=== PATIENT | male | born 1950 | race Caucasian/White ===

== ENCOUNTER 2017-09-27 22:00 | Emergency (ER) | payer OTHER, MEDICARE ==
[2017-09-27] MEDS ORDERED: IPRATROPIUM/ALBUTEROL 3 ML DEYVIAL IH ONE (22:09)
[2017-09-27] MEDS ORDERED: predniSONE 20 MG TAB PO ONE (22:22)
[2017-09-27] MEDS ORDERED: ALBUTEROL 3 ML DEYVIAL IH ONE (22:31)
--- NOTE | 2017-09-27 22:35 | EDPHY ---
H & P Stated Complaint: astma excarebation- SOB Time Seen by Provider: 09/27/17 22:20 HPI/ROS: HPI The patient presents with shortness of breath which has been present for the last 3 days. Over the last 1 week, patient has had URI type symptoms with cough , rhinorrhea, congestion. This is a usual trigger for his asthma. He took prednisone when he felt his cold coming on, he is unsure of the dose, however he ran out of this 4 days ago. He says he feels short of breath with wheezing throughout much of the day. He is using an albuterol nebulizer at home every 4 hr. He also uses Flovent twice daily daily. He does feel short of breath when he walks though was able to walk 0.5 mi yesterday without difficulty. He has a longstanding history of asthma in childhood which improved but has been worse over the last 4 years. He is followed by a terminal make up operator though has not seen him in a while. He has never been hospitalized or intubated for asthma. His last exacerbation was about 3 months ago. REVIEW OF SYSTEMS Constitutional: No fever, no chills. Eyes: No discharge. ENT: No sore throat. Cardiovascular: No chest pain, no palpitations. Respiratory: See HPI Gastrointestinal: No abdominal pain, no vomiting. Genitourinary: No hematuria. Musculoskeletal: No back pain. Skin: No rashes. Neurological: No headache. PMHx: Asthma as above Soc Hx: Lives at home with his PHYSICAL General Appearance: Alert, no distress Eyes: Pupils equal and round no pallor or injection ENT, Mouth: Mucous membranes moist Respiratory: He is speaking full sentences, there are no retractions, inspiratory and expiratory wheezes are present with prolonged I to E time in all lung yin Cardiovascular: Regular rate and rhythm Gastrointestinal: Abdomen is soft and non-tender, no masses, bowel sounds normal Neurological: A&O, moves all extremities Skin: Warm and dry, no rashes Musculoskeletal: Neck is supple non tender Extremities: symmetrical, full range of motion Psychiatric: Patient is oriented X 3, there is no agitation Source: Patient Exam Limitations: No limitations - Personal History Current Tetanus Diphtheria and Acellular Pertussis (TDAP): No - Medical/Surgical History Hx Asthma: Yes Hx Chronic Respiratory Disease: No Hx Diabetes: No Hx Cardiac Disease: No Hx Renal Disease: No Hx Cirrhosis: No Hx Alcoholism: No Hx HIV/AIDS: No Hx Splenectomy or Spleen Trauma: No Other PMH: htn, asthma - Social History Smoking Status: Former smoker Constitutional: Initial Vital Signs Temperature (C) 37.2 C 09/27/17 22:03 Heart Rate 107 H 09/27/17 22:03 Respiratory Rate 20 09/27/17 22:03 Blood Pressure 124/95 H 09/27/17 22:03 O2 Sat (%) 87 L 09/27/17 22:03 O2 Delivery Mode Room Air O2 (L/minute) 2 Allergies/Adverse Reactions: No Known Allergies Allergy (Unverified 09/27/17 22:02) Home Medications: Medication Instructions Recorded AZITHROMYCIN [Z-PACK] 250 mg PO DAILY #4 packet 05/30/15 Albuterol Hfa Anes Only [Proair 60 puffs IH 05/30/15 Hfa Anes Only] Fluticasone Hfa 110 Mcg [Flovent 1 puffs IH BID #1 mdi 05/30/15 110 MCG Hfa MDI (*)] Lisinopril 10 mg PO 05/30/15 predniSONE 60 mg PO DAILY #15 tab 05/30/15 Azithromycin 250 mg PO DAILY 4 Days #4 tablet 09/27/17 predniSONE 60 mg PO DAILY #15 tab 09/27/17 Medical Decision Making - Diagnostics Imaging Results: Imaging Impressions Chest X-Ray 09/27/17 22:22 Impression: Mild bronchitis. No other evidence of acute cardiopulmonary abnormality. Imaging: Discussed imaging studies w/ square dance caller Radiologist, I viewed and interpreted images myself Differential Diagnosis: This is a 67-year-old male with past medical history of asthma who presents with 3 days of progressive shortness of breath, not responding to albuterol nebulizer treatments at home. Symptoms follow about a week of URI symptoms including cough, congestion, rhinorrhea. This is a usual trigger for his asthma. On exam, he is hypoxic, 87% at triage, in the 90s in the room. He has diffuse wheezes though is in no respiratory distress. Plan for DuoNeb, chest x-ray, prednisone. The patient received a DuoNeb and continued to have inspiratory and expiratory wheezing. Thus, he was given an hour long continuous albuterol nebulized treatment. Chest x-ray was performed and demonstrated likely bronchitis. Because of this, patient was given azithromycin. After his hour long treatment , he was able to walk around the emergency department and felt well without any shortness of breath and normal pulse oximetry. He is suitable for discharge. I will give him a course of azithromycin and prednisone. He has plenty of albuterol at home to administer via his neb. I have encouraged him to follow up with the terminal make up operator and he is in agreement with this plan. - Data Points Medications Given: Discontinued Medications Albuterol (Proventil Neb) 10 ml IH EDNOW ONE Stop: 09/27/17 22:32 Last Admin: 09/27/17 22:47 Dose: 12 ml Albuterol/Ipratropium (Duoneb) 3 ml IH EDNOW ONE Stop: 09/27/17 22:10 Last Admin: 09/27/17 22:29 Dose: 3 ml Azithromycin (Zithromax) 500 mg PO EDNOW ONE PRN Reason: Protocol Stop: 09/27/17 23:47 Last Admin: 09/27/17 23:49 Dose: 500 mg Prednisone (Prednisone) 60 mg PO EDNOW ONE Stop: 09/27/17 22:23 Last Admin: 09/27/17 22:29 Dose: 60 mg Departure - Departure Disposition: Home, Routine, Self-Care Clinical Impression: Asthma exacerbation Qualifiers: Asthma severity: mild Asthma persistence: intermittent Qualified Code(s): J45.21 - Mild intermittent asthma with (acute) exacerbation Condition: Good Instructions: Asthma (ED) Additional Instructions: Please continue to use your nebulizer as needed. Please complete the course of prednisone. I would like for you to follow up with your terminal make up operator sometime this week. You should return to the emergency department if your worse in any way. Referrals: Caroline Sweet MD [Primary Care Provider] - As per Instructions Prescriptions: Azithromycin 250 mg PO DAILY 4 Days #4 tablet predniSONE 60 mg PO DAILY #15 tab
[2017-09-27] MEDS ORDERED: ALBUTEROL 3 ML DEYVIAL ONE (22:46)
[2017-09-27] MEDS ORDERED: AZITHROMYCIN 250 MG TAB PO ONE (23:46)
[2017-09-28 00:02] VITALS: BP 120/88
== END 2017-09-28 00:02 | disposition home or self-care (01) ==
DX: J45.21 Mild intermittent asthma with (acute) exacerbation (principal); I10 Essential (primary) hypertension; Z87.891 Personal history of nicotine dependence
CPT/HCPCS: 71046; 99284; J7512; J7613

== ENCOUNTER → 2018-02-10 | Outpatient (CLI) | payer OTHER, MEDICARE | LOC: FIMAGING 09:20 | PROVIDERS: ATTEND Internal Medicine Critical Care Medicine | DX: Z13.83 Encounter for screening for respiratory disorder NEC (principal); R91.8 Other nonspecific abnormal finding of lung field; J45.909 Unspecified asthma, uncomplicated; I25.10 Atherosclerotic heart disease of native coronary artery without angina pectoris; I70.0 Atherosclerosis of aorta; M51.34 Other intervertebral disc degeneration, thoracic region; Z87.891 Personal history of nicotine dependence ==